=== PATIENT | male | born 1970 | race Caucasian/White ===

== ENCOUNTER 2024-11-03 11:55 | Emergency (ER) | payer OTHER, SELFPAY ==
[2024-11-03 12:27] VITALS: BP 143/97
[2024-11-03 12:43] LABS: % Basophils 0.7 % (0-2); % Eosinophils 0.8 % (0-6); % Immature Granulocytes 0.7 % (0-0.5); % Lymphocytes 12.8 % (20.5-51.1); % Monocytes 9.1 % (1.7-9.3); % Neutrophils 75.9 % (42.2-75.2); Absolute Eosinophils 0.1 10^3/uL (0-0.7); Absolute Lymphocytes 0.8 10^3/uL (1.2-3.4); Absolute Monocytes 0.5 10^3/uL (0.1-0.6); Absolute Neutrophils 4.5 10^3/uL (1.4-6.5); Hematocrit 41.9 % (39.0-52.0); Hemoglobin 15.3 g/dL (13.0-18.0); Mean Corp Hgb Conc. 36.5 g/dL (33.0-37.0); Mean Corpuscular Hgb 33.4 pg (27.0-31.0); Mean Corpuscular Volume 91.5 fL (80.0-94.0); Mean Platelet Volume 9.8 fL (7.4-10.4); Nucleated Red Blood Cells % 0 % (-); Platelet Count 228 10^3/uL (130-400); Red Blood Cell Count 4.58 10^6/uL (4.70-6.10); Red Cell Dist. Width 12.8 % (11.5-14.5)
[2024-11-03 13:02] LABS: ALT (SGPT) 28 U/L (0-50); AST (SGOT) 29 U/L (17-59); Albumin 4.6 g/dl (3.5-5.0); Alkaline Phosphatase 37 U/L (38-126); Blood Urea Nitrogen 28 mg/dl (9-20); Calcium 9.1 mg/dl (8.4-10.2); Carbon Dioxide 31 mmol/L (22-30); Chloride 102 mmol/L (98-107); Glucose 74 mg/dl (70-99); Potassium 4.4 mmol/L (3.5-5.1); Sodium 142 mmol/L (135-145); Total Bilirubin 1.8 mg/dl (0.2-1.3); Total Protein 6.8 g/dl (6.3-8.2); eGFR > 60.00
[2024-11-03 13:10] LABS: Troponin I < 0.012 ng/ml
[2024-11-03 15:00] VITALS: BP 128/72
[2024-11-03 17:11] LABS: Troponin I < 0.012 ng/ml
--- NOTE | 2024-11-03 17:30 | ED.GENMED ---
History of Present Illness
General
Chief Complaint: Chest Pain
Time Seen by Provider: 11/03/24 17:12
History of Present Illness
History of Present Illness:
54-year-old male with no significant past medical history presents to the emergency department for evaluation of intermittent episodes of diffuse chest pain occurring over the past several days. Pain does not radiate toward the back or to the arms.
Over the past few weeks he has been able to run a half marathon as well as swim half a mile this morning without provocation of pain. Pain seems to come and go without obvious provoking or palliating factors. No associated fever, chills, sweats,
nausea, vomiting, or diarrhea. Has had stress test in the past that were unremarkable. No family history of coronary artery disease to his knowledge, denies personal history of hypertension, hyperlipidemia, or tobacco use
Past History
Past History
ED Past Medical History: None
ED Past Surgical History: None
Social History
Tobacco: Non-smoker
Review of Systems
Review of Systems
Allergies reviewed?: Yes
All Other Systems: ROS reviewed and negative except as documented in HPI and ROS
Phy Exam
Physical Exam
Physical Exam:
GEN: Well appearing, NAD, WDWN
HEENT: Oral mucosa moist, no scleral icterus
Cardiac: Regular rate and rhythm, no murmurs
Lung: No respiratory distress, no tachypnea, lungs clear to auscultation bilaterally
MSK: No gross deformity or injuries
Skin: Good color, no pallor or jaundice, no rashes
Neuro: AO x3, moves all extremities freely
Psych: Calm, cooperative
Scores
Heart Score for Chest Pain Patients
STEMI patient?: No
History: Slightly or Non-Suspicious
ECG: Normal
Age: >45 - <65 years
Risk Factors: No Risk Factors
Troponin: </= Normal Limit
Heart Score for Chest Pain Patients: 1
Heart Score Risk: 2.5% MACE over next 6 weeks
Course
Orders/Labs/Results
Orders:
Orders
11/03/24 11:56
EKG [Electrocardiogram (*1)] Urgent
Reason for Study: Chest Pain
EKG- Treatment ONCE
11/03/24 12:33
Complete Blood Count/With Diff Urgent
Comprehensive Metabolic Panel Urgent
Troponin I Urgent
11/03/24 15:40
CR Chest - 2 Views Urgent
Comment:
Reason For Exam: CP
11/03/24 16:31
Troponin I Urgent
11/03/24 16:36
EKG [Electrocardiogram (*1)] Urgent
Reason for Study: Chest Pain
EKG- Treatment ONCE
Abnormal Lab Results
11/03/24
12:33
RBC 4.58 L 10^6/uL
(4.70-6.10)
MCH 33.4 H pg
(27.0-31.0)
Absolute Lymphs (auto) 0.8 L 10^3/uL
(1.2-3.4)
Immature Gran % 0.7 H %
(0-0.5)
Neutrophils % 75.9 H %
(42.2-75.2)
Lymphocytes % 12.8 L %
(20.5-51.1)
Carbon Dioxide 31 H mmol/L
(22-30)
BUN 28 H mg/dl
(9-20)
Total Bilirubin 1.8 H mg/dl
(0.2-1.3)
Alkaline Phosphatase 37 L U/L
(38-126)
11/03/24 12:33
11/03/24 12:33
Vital Signs
Initial and Last Documented VS:
Initial Vital Signs
Temp Pulse Resp BP Pulse Ox
97.8 F 61 16 143/97 98
11/03/24 12:27 11/03/24 12:27 11/03/24 12:27 11/03/24 12:27 11/03/24 12:27
Last Documented Vital Signs
Temp Pulse Resp BP Pulse Ox
97.7 F 50 16 128/72 99
11/03/24 15:00 11/03/24 15:00 11/03/24 15:00 11/03/24 15:00 11/03/24 15:00
MDM/Problems Addressed
MDM/Problems Addressed:
EKG is unremarkable and serial troponins are negative. Chest x-ray clear. Highly doubt ACS/CAD in the setting of patient's significant physical activity and lack of provoking symptoms. Unclear etiology to symptoms, did discuss cardiology
follow-up but do not feel this is prudent in this patient's case as he is low risk for coronary disease
*Critical Care Note
Total Time (30-74mins, 75-104mins- exclusive of procedures): Not Applicable
ED Attending Note
-
Portions of this chart may have been created with voice recognition software.� Occasional wrong word or��sound alike� substitutions may have occurred due to the inherent limitations of voice recognition software.
Discharge Plan
Departure
Patient Disposition: Home (Routine Discharge)
Date of Disposition: 11/03/24
Time of Disposition: 17:30
Patient with high blood pressure during this ER visit?: No
Discharge Problem:
Atypical chest pain
Instructions: Chest Pain That Is Not Caused by the Heart (DC)
Prescriptions:
No Action
No Current Medications
0
Referrals:
UNKNOWN - PT DOES,NOT KNOW [Unknown Provider] -
Activity Restrictions/Additional Instructions:
Discuss the potential benefit of a coronary calcium score with your primary care physician
Discharge Date and Time
Discharge Date/Time: 11/03/24 17:44
Print Language: MALAGASY
== END 2024-11-03 17:44 | disposition home or self-care (01) ==
LOC: EMR 11:55
PROVIDERS: Emergency Medicine; EMERGENCY PHYSICIAN Emergency Medicine; FAMILY PHYSICIAN Family Medicine
DX: R07.89 Other chest pain (principal)
CPT/HCPCS: 99285; 71046; 80053; 84484; 85025; 93005